=== PATIENT | female | born 1935 ===

== ENCOUNTER 2016-05-28 18:40 | Emergency (ER) | payer MEDICARE, MEDICAID ==
[2016-05-28 19:00] VITALS: TEMP 97.6; O2SAT 96
--- NOTE | 2016-05-28 19:59 | ED PDOC ---
HPI: CCC, URI, Sore Throat Chief Complaint (Provider): nose bleeding History Per: Patient History/Exam Limitations: no limitations Onset/Duration Of Symptoms: Hrs (6 hours ) Current Symptoms Are (Timing): Still Present Chief Complaint (Nursing): ENT Problem Additional Complaint(s): 80 yo , f, PMhx/o Hypertension, Hep C, recurrent epistaxis and multiples visit to ER for that reason, c/o left side nasal bleeding started today in the afternoon while she was sitting at home, not associated with trauma. She denies chest pain, SOB, dizziness, syncope, skin bruising or active bleeding from any other side of her body. Patient's daughter states that the last time she was seen by ENT was 7 months ago. Her ENT Dr Russell oswald [facility] Past Medical History - Medical History PMH: Hodgen's Disease, Anxiety, Cardia Arrhythmia, HTN Denies: HIV, Chronic Kidney Disease - Surgical History Surgical History: Appendectomy, Tonsillectomy - Family History Family History: States: Unknown Family Hx Vital Signs: Last Vital Signs Temp 97.6 F 05/28/16 18:56 Pulse 86 05/28/16 21:25 Resp 18 05/28/16 21:25 BP 130/90 05/28/16 21:25 Pulse Ox 96 05/28/16 21:33 - Home Medications Home Medications: Ambulatory Orders Medication Instructions Recorded Alprazolam [Xanax] 0.5 mg PO BID 12/01/14 Benazepril Hydrochloride [Lotensin] 1 tab PO DAILY 12/01/14 Gabapentin [Neurontin] 1 cap PO TID 12/01/14 Meclizine [Antivert] 12.5 mg PO TID 12/01/14 Omeprazole [Prilosec] 1 cap PO BID 12/01/14 Verapamil HCl [Verelan] 120 mg PO DAILY 12/01/14 Sodium Chloride [Nasal [place]] 88 ml NS Q4 #1 bottle 12/29/15 Amoxicillin/Clavulanate [Augmentin 1 tab PO BID #14 tab 05/28/16 875 MG-125 MG] Ferrous Sulfate [Feosol] 325 mg PO BID 05/28/16 - Allergies Allergies/Adverse Reactions: Allergies Allergy/AdvReac Type Severity Reaction Status Date / Time aspirin AdvReac VOMITING Verified 05/28/16 18:55 Review of Systems ENT: Positive for: Other (left side nasal bleeding ) Cardiovascular: Negative for: Chest Pain, Palpitations Respiratory: Negative for: Cough, Shortness of Breath Gastrointestinal: Negative for: Nausea, Abdominal Pain Neurological: Negative for: Weakness Psych: Negative for: Anxiety Physical Exam - Physical Exam Appears: Positive for: Well, No Acute Distress Head Exam: Positive for: ATRAUMATIC, NORMOCEPHALIC Skin: Positive for: Normal Color. Negative for: Diaphoresis, Pallor Eye Exam: Positive for: Normal appearance ENT: Positive for: Pharynx Is (posterior pharynx wall with blot clot, no active bleeding seen. left nostril with no active bleeding.dry guaze) Neck: Positive for: Normal Cardiovascular/Chest: Positive for: Regular Rate, Rhythm. Negative for: Chest Non Tender, Murmur Respiratory: Positive for: Normal Breath Sounds. Negative for: Crackles, Rales Gastrointestinal/Abdominal: Positive for: Normal Exam, Bowel Sounds, Soft. Negative for: Tenderness Neurologic/Psych: Positive for: Alert, Oriented - ECG O2 Sat by Pulse Oximetry: 96 Medical Decision Making Medical Decision Making: H&P as per resident, patient with left nare epistaxis with hx of recurrent epistaxis follows with Dr. Castellon of ENT. Left nare pack with 5.5 rhinorocket inserted with no complications. Pt to be discharged home with Augmentin. Pt will follow up with ENT within two days. Discussed plan with pt and daughter, who are agreeable. (Michaela Stafford) 19:40 80 yo , f, PMhx/o Hypertension, Hep C, recurrent epistaxis and multiples visit to ER for that reason Impression Epistaxis Cates Observation 20:40 Patient reports active bleeding by left nostril, gauze wet with blood Anterior nasal packing over Left nostril was placed. Patient tolerated procedure w/o complications. (Giuseppe De La Torre) Disposition - Disposition Disposition Time: 21:25 - Clinical Impression Clinical Impression: Nosebleed, symptom - Disposition Referrals: Jd Castellon MD [Staff Provider] - Condition: GOOD Additional Instructions: follow up with ENT in 2 days. return to the ED with any worsening or concerning symptoms Prescriptions: Amoxicillin/Clavulanate [Augmentin 875 MG-125 MG] 1 tab PO BID #14 tab Instructions: Nosebleed (ED) Print Language: MONGOLIAN
[2016-05-28 21:26] VITALS: BP 130/90; PULSE 86; RESP 18
--- NOTE | 2016-05-28 21:32 | ED PDOC ---
- ECG O2 Sat by Pulse Oximetry: 96 Medical Decision Making Medical Decision Making: H&P per resident, patient with left nare epistaxis with hx of recurrent epistaxis follows with Dr. Castellon of ENT. Left lorenz pact with 5.5 rhinorocket with no complications. Pt to be discharged home with Augmentin. Pt will follow up with ENT within two days. Discussed plan with pt and daughter, who are agreeable. Disposition Counseled Patient/Family Regarding: Studies Performed, Diagnosis, Need For Followup - Clinical Impression Clinical Impression: Nosebleed, symptom - POA Present On Arrival: None - Disposition Referrals: Jd Castellon MD [Staff Provider] - Disposition: Routine/Home Disposition Time: 22:00 Condition: GOOD Additional Instructions: follow up with ENT in 2 days. return to the ED with any worsening or concerning symptoms Prescriptions: Amoxicillin/Clavulanate [Augmentin 875 MG-125 MG] 1 tab PO BID #14 tab Instructions: Nosebleed (ED) Print Language: ROMANSH
== END 2016-05-28 21:25 | disposition home or self-care (01) ==
LOC: H.ER 18:40
DX: R04.0 Epistaxis (principal); I10 Essential (primary) hypertension; F41.9 Anxiety disorder, unspecified; B19.20 Unspecified viral hepatitis C without hepatic coma

== ENCOUNTER 2016-06-01 10:13 | Emergency (ER) | payer MEDICARE, MEDICAID ==
[2016-06-01 10:19] VITALS: TEMP 97
--- NOTE | 2016-06-01 10:33 | ED PDOC ---
HPI: General Adult Time Seen by Provider: 06/01/16 10:29 Chief Complaint (Nursing): ENT Problem History Per: Workers Compensation Specialist ([id number]) History/Exam Limitations: no limitations Additional Complaint(s): Patient is a 80yo female with hx of chronic nosebleeds and Hep C, comes to the ED for follow up after coming here for epistaxis on 05/28/16. She states that she was told by someone to return today. She reports compliance with antibiotics. She reports that she is feeling well. Past Medical History Reviewed: Historical Data, Nursing Documentation, Vital Signs Vital Signs: Last Vital Signs Temp 97 F L 06/01/16 10:18 Pulse 80 06/01/16 10:18 Resp BP 156/94 H 06/01/16 10:18 Pulse Ox 99 06/01/16 10:47 - Medical History PMH: Anxiety, Cardia Arrhythmia, HTN Denies: HIV, Chronic Kidney Disease - Surgical History Surgical History: Appendectomy, Tonsillectomy - Family History Family History: States: Unknown Family Hx - Home Medications Home Medications: Ambulatory Orders Medication Instructions Recorded Alprazolam [Xanax] 0.5 mg PO BID 12/01/14 Benazepril Hydrochloride [Lotensin] 1 tab PO DAILY 12/01/14 Gabapentin [Neurontin] 1 cap PO TID 12/01/14 Meclizine [Antivert] 12.5 mg PO TID 12/01/14 Omeprazole [Prilosec] 1 cap PO BID 12/01/14 Verapamil HCl [Verelan] 120 mg PO DAILY 12/01/14 Sodium Chloride [Nasal [place]] 88 ml NS Q4 #1 bottle 12/29/15 Amoxicillin/Clavulanate [Augmentin 1 tab PO BID #14 tab 05/28/16 875 MG-125 MG] Ferrous Sulfate [Feosol] 325 mg PO BID 05/28/16 - Allergies Allergies/Adverse Reactions: Allergies Allergy/AdvReac Type Severity Reaction Status Date / Time aspirin AdvReac VOMITING Verified 05/28/16 18:55 Review of Systems Constitutional: Negative for: Fever, Chills, Weakness, Malaise ENT: Negative for: Ear Pain, Nose Discharge, Mouth Pain, Mouth Swelling, Throat Pain, Throat Swelling Cardiovascular: Negative for: Chest Pain Respiratory: Negative for: Cough, Shortness of Breath, SOB with Exertion Gastrointestinal: Negative for: Nausea, Vomiting, Abdominal Pain, Diarrhea, Constipation Skin: Negative for: Rash Physical Exam - Physical Exam Appears: Positive for: Well, Non-toxic, No Acute Distress Head Exam: Positive for: ATRAUMATIC, NORMAL INSPECTION, NORMOCEPHALIC Eye Exam: Positive for: EOMI, PERRL, Scleral icterus ENT: Positive for: Other (rapid rhino to L nare) Neck: Positive for: Normal, Painless ROM Cardiovascular/Chest: Positive for: Regular Rate, Rhythm Respiratory: Positive for: Normal Breath Sounds - ECG O2 Sat by Pulse Oximetry: 99 Medical Decision Making Medical Decision Makin Old chart reviewed. [address] Castellon ENT who instructs removal of rapid-rhino in the ED. He requests continuation of medication and follow up in his office. 1046 Rapid rhino was removed by me. No epistaxis. Will monitor in the ED and discharge if stable. 1102 No recurrent epistaxis Disposition - Clinical Impression Clinical Impression: Epistaxis - Disposition Disposition: Routine/Home Disposition Time: 11:02 Condition: GOOD Additional Instructions: Follow up with Dr. Castellon within 2 days. Return to ED if condition worsens. Continue antibiotics. Additional Comments - Additional Comments Additional Comments: Scribe Attestation: Documented by Nader Ann acting as a scribe for Kimberly Pelaez MD. Scribe Attestation: All medical record entries made by the Scribe were at my direction and personally dictated by me. I have reviewed the chart and agree that the record accurately reflects my personal performance of the history, physical exam, medical decision making, and the department course for this patient. I have also personally directed, reviewed, and agree with the discharge instructions and disposition.
[2016-06-01 11:17] VITALS: BP 149/88; PULSE 84; RESP 18; O2SAT 98
== END 2016-06-01 11:17 | disposition home or self-care (01) ==
LOC: H.ER 10:13
DX: R04.0 Epistaxis (principal); I10 Essential (primary) hypertension; B19.20 Unspecified viral hepatitis C without hepatic coma; F41.9 Anxiety disorder, unspecified

== ENCOUNTER 2016-07-23 11:23 | Emergency (ER) | payer MEDICARE, MEDICAID ==
[2016-07-23 11:43] VITALS: BP 150/89; PULSE 88; RESP 20; TEMP 98.2
[2016-07-23 11:47] VITALS: O2SAT 98
[2016-07-23] MEDS ORDERED: Silver Nitrate Topical - Stick ONE (12:53)
--- NOTE | 2016-07-23 12:54 | ED PDOC ---
HPI: Nose Bleed Time Seen by Provider: 07/23/16 11:45 Chief Complaint (Nursing): ENT Problem History Per: Patient History/Exam Limitations: no limitations Onset/Duration Of Symptoms: Sudden Onset (today) Current Symptoms Are (Timing): Still Present Location Of Bleeding: Both Nares Symptoms Have Been: Episodic Severity: Mild Associated Symptoms: denies: Syncope, Lightheadedness, Bleeding From Gums, Nasal Congestion, Nasal Drainage Anticoagulant/Antiplatlet Use?: No Additional Complaint(s): mild nose bleed similar sx in the past. Past Medical History Reviewed: Historical Data, Nursing Documentation, Vital Signs Vital Signs: Last Vital Signs Temp 98.2 F 07/23/16 11:45 Pulse 88 07/23/16 11:45 Resp 20 07/23/16 11:45 BP 150/89 07/23/16 11:45 Pulse Ox 98 07/23/16 11:45 - Medical History PMH: Albin's Disease, Anxiety, Cardia Arrhythmia, HTN Denies: HIV, Chronic Kidney Disease - Surgical History Surgical History: Appendectomy, Tonsillectomy - Family History Family History: States: Unknown Family Hx - Living Arrangements Living Arrangements: With Family - Home Medications Home Medications: Ambulatory Orders Medication Instructions Recorded Alprazolam [Xanax] 0.5 mg PO BID 12/01/14 Benazepril Hydrochloride [Lotensin] 1 tab PO DAILY 12/01/14 Gabapentin [Neurontin] 1 cap PO TID 12/01/14 Meclizine [Antivert] 12.5 mg PO TID 12/01/14 Omeprazole [Prilosec] 1 cap PO BID 12/01/14 Verapamil HCl [Verelan] 120 mg PO DAILY 12/01/14 Sodium Chloride [Nasal [place]] 88 ml NS Q4 #1 bottle 12/29/15 Amoxicillin/Clavulanate [Augmentin 1 tab PO BID #14 tab 05/28/16 875 MG-125 MG] Ferrous Sulfate [Feosol] 325 mg PO BID 05/28/16 - Allergies Allergies/Adverse Reactions: Allergies Allergy/AdvReac Type Severity Reaction Status Date / Time aspirin AdvReac VOMITING Verified 07/23/16 11:43 Review of Systems ROS Statement: Except As Marked, All Systems Reviewed And Found Negative Constitutional: Negative for: Fever, Chills ENT: Negative for: Throat Pain, Throat Swelling Cardiovascular: Negative for: Chest Pain Respiratory: Negative for: Cough, Shortness of Breath Gastrointestinal: Negative for: Nausea, Vomiting, Abdominal Pain Neurological: Negative for: Weakness, Numbness Physical Exam - Reviewed Nursing Documentation Reviewed: Yes Vital Signs Reviewed: Yes - Physical Exam Appears: Positive for: Well, No Acute Distress Head Exam: Positive for: ATRAUMATIC, NORMAL INSPECTION, NORMOCEPHALIC Eye Exam: Positive for: Normal appearance, EOMI, PERRL ENT: Positive for: Other (mild epistaxsis from left nare) Neck: Positive for: Normal, Painless ROM, Supple Cardiovascular/Chest: Positive for: Regular Rate, Rhythm Respiratory: Positive for: Normal Breath Sounds Neurologic/Psych: Positive for: Alert, linen worker II-XII, Oriented, Gait (steady). Negative for: Motor/Sensory Deficits - ECG O2 Sat by Pulse Oximetry: 98 Pulse Ox Interpretation: Normal - Progress ED Course And Treament: sx improved after cauterization with silver nitrate. bleeding stopped pt tolerate procedure well and leaves in good spirits with family. Re-evaluation Time: 13:35 Condition: Improved Disposition - Clinical Impression Clinical Impression: Epistaxis - Patient ED Disposition Is Patient to be Admitted: No Counseled Patient/Family Regarding: Studies Performed, Diagnosis, Need For Followup - Disposition Referrals: Jd Castellon MD [Staff Provider] - (2 to 3 days) Disposition: Routine/Home Disposition Time: 13:36 Condition: GOOD Instructions: Nosebleed (ED) Print Language: SYRIAC
== END 2016-07-23 13:51 | disposition home or self-care (01) ==
LOC: H.ER 11:23
DX: R04.0 Epistaxis (principal); I10 Essential (primary) hypertension; F41.9 Anxiety disorder, unspecified

== ENCOUNTER 2017-06-08 18:34 | Emergency (ER) | payer MEDICARE, MEDICAID ==
[2017-06-08 18:43] VITALS: BP 150/83; PULSE 79; RESP 18; TEMP 97.9; O2SAT 97
--- NOTE | 2017-06-08 19:58 | ED PDOC ---
HPI: General Adult Time Seen by Provider: 06/08/17 19:12 Chief Complaint (Nursing): Dizziness/Lightheaded Chief Complaint (Provider): Dizziness History Per: Patient, Family History/Exam Limitations: no limitations Onset/Duration Of Symptoms: Hrs (12) Current Symptoms Are (Timing): Gone Now Severity: Moderate Additional History Per: Patient, Family Additional Complaint(s): 82 y/o female accompanied by her daughter. Patient describes an episode of dizziness this morning when she first awoke and worsened when she starting walking around her house. This lasted for approximately 1 hour and then resolved. However, since then, she has had a "queasy" feeling from her nose to her forehead, for which she taped a coin to her forehead as a home remedy. She has also been feeling anxious. Denies chest pain, syncope, numbness, weakness, or nausea. She reports isolated left arm pain last week that did not involve the chest, or shoulder. Patient's daughter reports that the patient has a history of chronic vertigo for which she takes meclizine. They came to the ED tonight for the "queasy" feeling, after calling the patient's PMD Dr. Leahy Past Medical History Vital Signs: Last Vital Signs Temp 97.9 F 06/08/17 18:41 Pulse 79 06/08/17 18:41 Resp 18 06/08/17 18:41 BP 150/83 06/08/17 18:41 Pulse Ox 97 06/08/17 22:42 - Medical History PMH: Dickson's Disease, Anxiety, Cardia Arrhythmia, HTN Denies: HIV, Chronic Kidney Disease Other PMH: vertigo - Surgical History Surgical History: Appendectomy, Tonsillectomy - Family History Family History: States: Unknown Family Hx - Social History Current smoker - smoking cessation education provided: No Alcohol: None Drugs: Denies - Home Medications Home Medications: Ambulatory Orders Medication Instructions Recorded Alprazolam [Xanax] 0.5 mg PO BID 12/01/14 Benazepril Hydrochloride [Lotensin] 1 tab PO DAILY 12/01/14 Gabapentin [Neurontin] 1 cap PO TID 12/01/14 Meclizine [Antivert] 12.5 mg PO TID 12/01/14 Omeprazole [Prilosec] 1 cap PO BID 10/13/15 Verapamil HCl [Verelan] 120 mg PO DAILY 12/01/14 Sodium Chloride [Nasal [place]] 88 ml NS Q4 #1 bottle 12/29/15 Amoxicillin/Clavulanate [Augmentin 1 tab PO BID #14 tab 05/28/16 875 MG-125 MG] Ferrous Sulfate [Feosol] 325 mg PO BID 05/28/16 - Allergies Allergies/Adverse Reactions: Allergies Allergy/AdvReac Type Severity Reaction Status Date / Time aspirin AdvReac VOMITING Verified 06/08/17 18:40 Review of Systems ROS Statement: Except As Marked, All Systems Reviewed And Found Negative Neurological: Positive for: Dizziness Physical Exam - Reviewed Nursing Documentation Reviewed: Yes Vital Signs Reviewed: Yes - Physical Exam Appears: Positive for: Well, Non-toxic, No Acute Distress Head Exam: Positive for: ATRAUMATIC, NORMAL INSPECTION, NORMOCEPHALIC Skin: Positive for: Normal Color, Warm, DRY Eye Exam: Positive for: EOMI, Normal appearance, PERRL ENT: Positive for: Normal ENT Inspection Neck: Positive for: Normal, Painless ROM Cardiovascular/Chest: Positive for: Regular Rate, Rhythm Respiratory: Positive for: CNT, Normal Breath Sounds Gastrointestinal/Abdominal: Positive for: Normal Exam, Soft Back: Positive for: Normal Inspection Extremity: Positive for: Normal ROM Neurologic/Psych: Positive for: Alert, story writer II-XII, Oriented, Mood/Affect (normal ), Cerebellar Tests (unremarkable finger to nose, Romberg, and heel to farias), Gait (stable). Negative for: Motor/Sensory Deficits, Facial Droop - Laboratory Results Result Diagrams: 06/08/17 20:00 06/08/17 20:00 - ECG ECG: Positive for: Interpreted By Me, Viewed By Me ECG Rhythm: Positive for: Normal ST Segment, Sinus Rhythm (82, PACs), Right Bundle Branch Block (same as previous) O2 Sat by Pulse Oximetry: 97 (RA) Pulse Ox Interpretation: Normal - Progress Re-evaluation Time: 22:40 Condition: Re-examined, Improved Medical Decision Making Medical Decision Making: Impression: Dizziness Differential: peripheral vertigo, central vertigo Plan: - Labs - EKG - CT Head - Antivert [facility] Final Radiology Report Call: [phone] assistance Online chat: [email or web address] Patient Name: TYRONE WANG (Age): 1935 82 Gender: F Date of Exam: 06/08/2017 Referring Physician: Juany Linder # of Images: [id number] Ordered As: CT HEAD W O CONTRAST Page 1 of 2 EXAM: CT Head Without Intravenous Contrast EXAM DATE/TIME: 06/08/2017 7:28 PM CLINICAL HISTORY: 82 years old, female; Signs and symptoms; Dizziness TECHNIQUE: Axial computed tomography images of the head/brain without intravenous contrast. All CT scans at this facility use one or more dose reduction techniques, viz.: automated exposure control; ma/kV adjustment per patient size (including targeted exams where dose is matched to indication; i.e. head); or iterative reconstruction technique. Coronal and sagittal reformatted images were created and reviewed. COMPARISON: Prior head CT of 2014-12-01 FINDINGS: LIMITATIONS: Moderate streak/motion artifact. BRAIN: Extensive areas of low density in the white matter bilaterally. This is a nonspecific finding, however, is most likely secondary to marked chronic small vessel ischemic changes, in a patient of this age. No significant acute abnormality identified. No acute hemorrhage seen within the brain. No acute extra-axial fluid collections visualized. No evidence of significant mass effect within the brain. No CT findings to suggest an acute, large territorial infarct, however, small or early acute infarcts may not be visible on CT. VENTRICLES: No evidence of significant hydrocephalus. BONES/JOINTS: No acute fractures or other acute bony abnormality noted. SOFT TISSUES: No acute abnormality of the visualized soft tissues is seen. VASCULATURE: Grossly stable appearance of aneurysmal dilatation of the cavernous segments of the internal carotid arteries bilaterally, measuring up to 1.3 cm on the right and 8 mm on the left, associated with atherosclerotic calcification. No evidence of aneurysm rupture. SINUSES: Visualized paranasal sinuses appear clear. MASTOID AIR CELLS: Mastoid air cells appear clear. IMPRESSION: - No acute findings seen within the brain, allowing for motion artifact. TYRONE WANG | Final Radiology Report CONFIDENTIALITY STATEMENT This report is intended only for use by the referring physician, and only in accordance with law. If you received this in error, call [phone]. 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 - See above for remaining findings. Thank you for allowing us to participate in the care of your patient. Dictated and Authenticated by: Amara Resendez MD 06/08/2017 9:47 PM Eastern Time ([place] & [place]) 22:45: Spoke with patient's PMD who is comfortable with the patient being discharged home and following up in the office. She is stable for discharge home and reports that her complains are significantly improved at this time. furthermore, she was able to ambulate to the restroom without difficulty and has a steady gait. There is no indication for further treatment or testing at this time in the ED, nor indication for admission. Scribe Attestation: Documented by Cathy Pabon, acting as a scribe for Juany Lnider MD. Provider Scribe Attestation: All medical record entries made by the Scribe were at my direction and personally dictated by me. I have reviewed the chart and agree that the record accurately reflects my personal performance of the history, physical exam, medical decision making, and the department course for this patient. I have also personally directed, reviewed, and agree with the discharge instructions and disposition. Disposition - Clinical Impression Clinical Impression: Dizzy spells, Recurrent vertigo - Patient ED Disposition Is Patient to be Admitted: No Discussed With : Peter Rojas Doctor Will See Patient In The: Office Counseled Patient/Family Regarding: Studies Performed, Diagnosis, Need For Followup - Disposition Referrals: Peter Rojas MD [Family Provider] - Disposition: Routine/Home Disposition Time: 22:40 Condition: GOOD Additional Instructions: Take your medications as instructed. Follow up with your PCP on Sunday. [place] [facility] segn las instrucciones. Doc un seguimiento con madera PCP el . Instructions: Vertigo (a Type of Dizziness) Print Language: TURKMEN
[2017-06-08 20:06] LABS: BASO % 0.8 % (0.0-2.0); EOS # 0.1 K/uL (0.0-0.7); EOS % 2.8 % (0.0-4.0); LYMPH # 1.8 K/uL (1.0-4.3); LYMPH % 46.8 % (20.0-40.0); MEAN CELL VOLUME 93.5 fl (81.0-99.0); MEAN CORPUSCULAR HEMOGLOBIN 30.7 pg (27.0-31.0); MEAN CORPUSCULAR HGB CONC 32.8 g/dL (33.0-37.0); MEAN PLATELET VOLUME 9.7 fl (7.2-11.7); MONO # 0.5 K/uL (0.0-0.8); MONO % 13.3 % (0.0-10.0); NEUT # 1.4 K/uL (1.8-7.0); NEUT % 36.3 % (50.0-75.0); NRBC % 0.1 % (0.0-0.0); RBC 3.9 Mil/uL (3.80-5.20); RED CELL DISTRIBUTION WIDTH 15.4 % (11.5-14.5); WHITE BLOOD COUNT 3.9 K/uL (4.8-10.8)
[2017-06-08 20:17] LABS: BLOOD UREA NITROGEN 23 mg/dl (7-17); CALCIUM 9.3 mg/dL (8.4-10.2); GFR AFRICAN-AMERICAN > 60; GFR NON-AFRICAN AMERICAN > 60
[2017-06-08 20:49] LABS: SQUAMOUS EPITHIAL 2 /hpf (0-5); URINE BACTERIA RARE (<OCC); URINE BILIRUBIN NEGATIVE (NEGATIVE); URINE BLOOD NEGATIVE (NEGATIVE); URINE CLARITY CLOUDY (Clear); URINE COLOR YELLOW (YELLOW); URINE GLUCOSE (UA) NEG (Normal); URINE LEUKOCYTE ESTERASE TRACE Leu/uL (Negative); URINE PROTEIN NEGATIVE (NEGATIVE); URINE UROBILINOGEN 0.2-1.0 mg/dL (0.2-1.0)
--- NOTE | 2017-06-08 21:48 | CT ---
EXAM: CT Head Without Intravenous Contrast EXAM DATE/TIME: 06/08/2017 7:28 PM CLINICAL HISTORY: 82 years old, female; Signs and symptoms; Dizziness TECHNIQUE: Axial computed tomography images of the head/brain without intravenous contrast. All CT scans at this facility use one or more dose reduction techniques, viz.: automated exposure control; ma/kV adjustment per patient size (including targeted exams where dose is matched to indication; i.e. head); or iterative reconstruction technique. Coronal and sagittal reformatted images were created and reviewed. COMPARISON: Prior head CT of 2014-12-01 FINDINGS: LIMITATIONS: Moderate streak/motion artifact. BRAIN: Extensive areas of low density in the white matter bilaterally. This is a nonspecific finding, however, is most likely secondary to marked chronic small vessel ischemic changes, in a patient of this age. No significant acute abnormality identified. No acute hemorrhage seen within the brain. No acute extra-axial fluid collections visualized. No evidence of significant mass effect within the brain. No CT findings to suggest an acute, large territorial infarct, however, small or early acute infarcts may not be visible on CT. VENTRICLES: No evidence of significant hydrocephalus. BONES/JOINTS: No acute fractures or other acute bony abnormality noted. SOFT TISSUES: No acute abnormality of the visualized soft tissues is seen. VASCULATURE: Grossly stable appearance of aneurysmal dilatation of the cavernous segments of the internal carotid arteries bilaterally, measuring up to 1.3 cm on the right and 8 mm on the left, associated with atherosclerotic calcification. No evidence of aneurysm rupture. SINUSES: Visualized paranasal sinuses appear clear. MASTOID AIR CELLS: Mastoid air cells appear clear. IMPRESSION: - No acute findings seen within the brain, allowing for motion artifact. 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 - See above for remaining findings.
--- NOTE | 2017-06-09 11:46 | CARD ---
APPROVED REPORT EKG Measurement Heart [id number] <Conclusion> Sinus rhythm with premature atrial complexes Right bundle branch block Abnormal ECG
== END 2017-06-08 22:49 | disposition home or self-care (01) ==
LOC: H.ER 18:34
DX: R42 Dizziness and giddiness (principal); I10 Essential (primary) hypertension; E27.1 Primary adrenocortical insufficiency; F41.9 Anxiety disorder, unspecified

== ENCOUNTER 2017-07-20 11:08 | Observation (INO) | payer MEDICARE, MEDICAID ==
[2017-07-20 11:41] VITALS: BMI 27.4
--- NOTE | 2017-07-20 12:29 | ED PDOC ---
HPI: General Adult Time Seen by Provider: 07/20/17 11:57 Chief Complaint (Nursing): Lower Extremity Problem/Injury History Per: Patient (this is an 82 year lady who is sent to the ER by Dr. Rojas because she presented with dizziness yesterday along with left arm pain and bilateral knee pain. Dr. Rojas is very concerned about her knee pain and asked for MRI's to be done instead of x-rays or CT-scan. Patient denies CROOK, nausea,vomiting, chest pain or shortness of breath.) Past Medical History Reviewed: Historical Data, Nursing Documentation, Vital Signs Vital Signs: Last Vital Signs Temp 98.1 F 07/20/17 11:41 Pulse 66 07/20/17 16:05 Resp 18 07/20/17 16:05 BP 150/85 07/20/17 16:05 Pulse Ox 99 07/20/17 16:05 - Medical History PMH: [place]'s Disease, Anxiety, Cardia Arrhythmia, HTN, Hyperthyroidism Denies: HIV, Chronic Kidney Disease - Surgical History Surgical History: Appendectomy, Tonsillectomy - Family History Family History: States: Unknown Family Hx - Living Arrangements Living Arrangements: With Family - Social History Current smoker - smoking cessation education provided: No - Home Medications Home Medications: Ambulatory Orders Medication Instructions Recorded Alprazolam [Xanax] 0.5 mg PO BID 12/01/14 Benazepril Hydrochloride [Lotensin] 1 tab PO DAILY 12/01/14 Gabapentin [Neurontin] 1 cap PO TID 12/01/14 Meclizine [Antivert] 12.5 mg PO TID 12/01/14 Omeprazole [Prilosec] 1 cap PO BID 12/01/14 Verapamil HCl [Verelan] 120 mg PO DAILY 12/01/14 Sodium Chloride [Nasal [place]] 88 ml NS Q4 #1 bottle 12/29/15 Amoxicillin/Clavulanate [Augmentin 1 tab PO BID #14 tab 05/28/16 875 MG-125 MG] Ferrous Sulfate [Feosol] 325 mg PO BID 05/28/16 - Allergies Allergies/Adverse Reactions: Allergies Allergy/AdvReac Type Severity Reaction Status Date / Time aspirin AdvReac VOMITING Verified 07/20/17 12:02 Review of Systems ROS Statement: Except As Marked, All Systems Reviewed And Found Negative Constitutional: Negative for: Fever Cardiovascular: Negative for: Chest Pain Gastrointestinal: Negative for: Nausea, Vomiting Genitourinary Female: Negative for: Dysuria Musculoskeletal: Positive for: Other (bilateral knee pain) Neurological: Positive for: Dizziness - Laboratory Results Result Diagrams: 07/20/17 12:30 07/20/17 12:30 - ECG O2 Sat by Pulse Oximetry: 98 Medical Decision Making Medical Decision Making: case d/w Dr. Rojas @12:15pm case d/w Dr. Rojas 4:30pm- patient to be admitted for intractable knee pain with bilateral knee joint instability. Disposition - Clinical Impression Clinical Impression: Knee pain, acute, Knee instability - Patient ED Disposition Is Patient to be Admitted: Yes Doctor Will See Patient In The: Hospital - Disposition Disposition: Transfer of Care Disposition Time: 16:30 Condition: FAIR Forms: [employer] (Finnish) - Pt Status Changed To: Hospital Disposition Of: Observation - POA Present On Arrival: Falls Or Trauma
[2017-07-20 12:45] LABS: BASO # 0.1 K/uL (0.0-0.2); BASO % 1.2 % (0.0-2.0); EOS # 0.2 K/uL (0.0-0.7); EOS % 3.8 % (0.0-4.0); HEMOGLOBIN 12.2 g/dL (12.0-16.0); LYMPH % 45.7 % (20.0-40.0); MEAN CELL VOLUME 92.4 fl (81.0-99.0); MEAN CORPUSCULAR HEMOGLOBIN 30.6 pg (27.0-31.0); MEAN CORPUSCULAR HGB CONC 33.1 g/dL (33.0-37.0); MEAN PLATELET VOLUME 9.5 fl (7.2-11.7); MONO # 0.8 K/uL (0.0-0.8); NEUT # 1.3 K/uL (1.8-7.0); NEUT % 31.3 % (50.0-75.0); NRBC % 0.1 % (0.0-0.0); RED CELL DISTRIBUTION WIDTH 14.9 % (11.5-14.5); WHITE BLOOD COUNT 4.3 K/uL (4.8-10.8)
[2017-07-20 13:15] LABS: ALB/GLOB RATIO 0.9 (1.0-2.1); ALBUMIN 4.1 g/dL (3.5-5.0); ALT/SGPT 27 U/L (9-52); AST/SGOT 32 U/L (14-36); BLOOD UREA NITROGEN 20 mg/dl (7-17); CALCIUM 9.3 mg/dL (8.4-10.2); GFR AFRICAN-AMERICAN > 60; GFR NON-AFRICAN AMERICAN > 60
--- NOTE | 2017-07-20 15:02 | MRI ---
PROCEDURE: MRI Left Knee HISTORY: Pain. COMPARISON: None available. TECHNIQUE: Multiecho multiplanar sequences were performed through the left knee. FINDINGS: ANTERIOR CRUCIATE LIGAMENT:: IntactA complete tear of the distal ACL is suggested though this is not definite. POSTERIOR CRUCIATE LIGAMENT:: Intact. MEDIAL MENISCUS:: There is limited residual medial meniscus remaining at the body with a small fragment the posterior horn remaining secondary to complex degenerative changes, postoperative change and/or multiple full-thickness tear is. The anterior horn is displaced anteriorly migrating with large osteophytes. LATERAL MENISCUS:: Gross degenerative intrameniscal signal changes seen related to the lateral meniscus without definitive articular tear. MEDIAL COLLATERAL LIGAMENT:: Sprain or partial tear is of the anterior fibers of the medial collateral ligament complex is appreciated as well as lateral fibers diffusely. LATERAL COLLATERAL LIGAMENT COMPLEX:: No definite acute tear. QUADRICEPS TENDON:: Intact. PATELLAR TENDON:: Intact. CARTILAGE:: Gross chondromalacia is appreciate all 3 joint compartments. JOINT FLUID:: [id number] medial femorotibial joint effusions with a large suprapatellar bursa effusion present. OSSEOUS STRUCTURES:: Gross joint space narrowing and osteophyte development are identified at the medial femorotibial compartment with similar advanced changes are present at the patellofemoral and lateral femoral compartment but in decreasing severity. No fracture or bone contusion although gross eburnation and subchondral edema is seen at the weight-bearing portion of the medial femorotibial compartment further in the representing advanced degenerative joint disease. Lesser similar change appears at the patellofemoral articulation with none at the lateral femorotibial compartment. OTHER FINDINGS: Mildly large medial popliteal cyst 3.8 x 1.9 x 5.5 cm. IMPRESSION: Primary feature is grossly advanced osteoarthritis though ACL tear versus gross distal ACL mucoid degeneration is identified. Partial tear or sprain MCL fibers as described above. Complex tear is an pathology at medial meniscus identified. Mildly large medial popliteal cyst noted.
--- NOTE | 2017-07-20 15:12 | MRI ---
PROCEDURE: MRI Right Knee HISTORY: Pain. COMPARISON: None available. TECHNIQUE: Multiecho multiplanar sequences were performed through the right knee. FINDINGS: Examination is compromised by motion artifact ANTERIOR CRUCIATE LIGAMENT:: Will AC left not identified indicative of complete tear. POSTERIOR CRUCIATE LIGAMENT:: Intact. MEDIAL MENISCUS:: Minimus is grossly deep disease with anterior and posterior horns migrating with large osteophytes peripherally. The body is bright in signal throughout suggesting gross inferior articular tear or marked mucoid degeneration. LATERAL MENISCUS:: No definite articular tear identified. Degenerative intrameniscal signal changes are identified relatively diffusely. MEDIAL COLLATERAL LIGAMENT:: Intact. LATERAL COLLATERAL LIGAMENT COMPLEX:: Intact. QUADRICEPS TENDON:: Intact. PATELLAR TENDON:: Intact. CARTILAGE:: There is gross chondromalacia involving all 3 compartments with medial femorotibial compartment the worst affected were there is minimal residual appreciated. JOINT FLUID:: [id number] medial and lateral femorotibial joint effusions are identified with a large suprapatellar bursa effusion. OSSEOUS STRUCTURES:: No fracture or subluxation. Gross subchondral edema is appreciated deep to the articular surfaces of the medial tibial plateau and medial femoral condyle compatible with advanced degenerative joint disease. No definite subchondral cyst formation grossly evident. OTHER FINDINGS: None. IMPRESSION: Advanced osteoarthritis is the primary feature although nonvisualization of the ACL indicates complete tear. No additional ligament or tendon tear identified. Gross myxoid degeneration or inferior articular tear seen related to the body of the medial meniscus.
--- NOTE | 2017-07-20 16:20 | CT ---
PROCEDURE: CT HEAD WITHOUT CONTRAST. HISTORY: dizziness COMPARISON: 06/08/2017 TECHNIQUE: Axial computed tomography images were obtained through the head/brain without intravenous contrast. Radiation dose: Total exam DLP = 796.15 mGy-cm. This CT exam was performed using one or more of the following dose reduction techniques: Automated exposure control, adjustment of the mA and/or kV according to patient size, and/or use of iterative reconstruction technique. FINDINGS: HEMORRHAGE: No intracranial hemorrhage. BRAIN: No intracranial mass. Moderate to severe patchy and confluent white matter lucency in the periventricular and deep/subcortical white matter, consistent with microvascular ischemic change. No evidence of acute infarct. 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 No appreciable interval change. VENTRICLES: Unremarkable. No hydrocephalus. CALVARIUM: Unremarkable. PARANASAL SINUSES: Unremarkable as visualized. No significant inflammatory changes. MASTOID AIR CELLS: Unremarkable as visualized. No inflammatory changes. OTHER FINDINGS: None. IMPRESSION: No intracranial hemorrhage. Moderate to severe microvascular white matter ischemic change. No evidence of acute infarct. 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
[2017-07-20] MEDS ORDERED: Oxycodone/Acetaminophen 5/325 mg Tab PO PRN (22:20)
[2017-07-20] MEDS ORDERED: Verapamil SR 120 MG CApsule PO SCH (22:30)
[2017-07-21 08:16] VITALS: RESP 20
[2017-07-21 08:17] VITALS: TEMP 98; O2SAT 95
[2017-07-21 08:40] LABS: ALB/GLOB RATIO 0.9 (1.0-2.1); ALBUMIN 4.1 g/dL (3.5-5.0); ALT/SGPT 19 U/L (9-52); AST/SGOT 29 U/L (14-36); BLOOD UREA NITROGEN 19 mg/dl (7-17); GFR AFRICAN-AMERICAN > 60; GFR NON-AFRICAN AMERICAN > 60; HDL CHOLESTEROL 48 MG/DL (30-70)
[2017-07-21 08:48] LABS: HEMOGLOBIN 12.3 g/dL (12.0-16.0); MEAN CELL VOLUME 92.6 fl (81.0-99.0); MEAN CORPUSCULAR HEMOGLOBIN 30.6 pg (27.0-31.0); RBC 4.02 Mil/uL (3.80-5.20); RED CELL DISTRIBUTION WIDTH 15.3 % (11.5-14.5); WHITE BLOOD COUNT 4.9 K/uL (4.8-10.8)
[2017-07-21 08:50] LABS: LDL CHOLESTEROL 69 mg/dL (0-129)
[2017-07-21 08:54] LABS: T4 11.9 ug/dl (5.5-11.0)
[2017-07-21] MEDS ORDERED: Pantoprazole 20 mg EC Tab PO SCH (09:00)
[2017-07-21] MEDS ORDERED: Multivitamin With Minerals Tab PO SCH (09:00)
[2017-07-21 09:35] VITALS: BP 122/70; PULSE 84
--- NOTE | 2017-07-21 10:40 | CP.PCM.CON ---
History of Present Illness - History of Present Illness History of Present Illness: This is a 82 yr old female with h/o anxiety and medical h/o knee pain,walt disease ,cardiac arrythmias and admitted for intractable knee pain and psych consult called for intractable knee pain and psych consult called for severe anxiety.pt was prescribed xanax 0.5 mg bid and neurontin 100 mg tid Past Patient History - Infectious Disease Hx of Infectious Diseases: None - Past Medical History & Family History Past Medical History?: Yes - Past Social History Smoking Status: Never Smoked - CARDIAC Hx Cardiac Disorders: Yes - PULMONARY Hx Respiratory Disorders: No - NEUROLOGICAL Hx Neurological Disorder: No - HEENT Hx HEENT Problems: Yes Hx Epistaxis: Yes - RENAL Hx Chronic Kidney Disease: No - ENDOCRINE/METABOLIC Hx Endocrine Disorders: Yes - HEMATOLOGICAL/ONCOLOGICAL Hx Human Immunodeficiency Virus (HIV): No - INTEGUMENTARY Hx Dermatological Problems: No - MUSCULOSKELETAL/RHEUMATOLOGICAL Hx Degenerative Joint Disease: Yes Hx Falls: Yes Hx Osteoarthritis: Yes - GASTROINTESTINAL Hx Gastroesophageal Reflux: Yes Other/Comment: Hepatitis C - GENITOURINARY/GYNECOLOGICAL Hx Genitourinary Disorders: No - PSYCHIATRIC Hx Anxiety: Yes Hx Substance Use: No - SURGICAL HISTORY Hx Appendectomy: Yes Hx Tonsillectomy: Yes - ANESTHESIA Hx Anesthesia: Yes Hx Anesthesia Reactions: No Hx Malignant Hyperthermia: No Meds Allergies/Adverse Reactions: Allergies Allergy/AdvReac Type Severity Reaction Status Date / Time aspirin AdvReac VOMITING Verified 07/20/17 12:02 - Medications Medications: Current Medications Alprazolam (Xanax) 0.25 mg PO Q12 PRN PRN Reason: Anxiety Stop: 07/27/17 22:21 Gabapentin (Neurontin) 100 mg PO Q12 [facility] Last Admin: 07/21/17 09:32 Dose: 100 mg Home Med (Ropinirole Hcl [Requip]) 0.5 mg PO HS [facility] Last Admin: 07/20/17 23:45 Dose: 0.5 mg Lisinopril (Zestril) 10 mg PO DAILY [facility] Last Admin: 07/21/17 09:34 Dose: 10 mg Meclizine HCl (Antivert) 25 mg PO Q8 PRN PRN Reason: Dizziness Methimazole (Tapazole) 10 mg PO Q8 [facility] Last Admin: 07/21/17 09:32 Dose: 10 mg Montelukast Sodium (Singulair) 10 mg PO HS [facility] Last Admin: 07/20/17 23:32 Dose: 10 mg Multivitamins/Minerals (Therapeutic-M Tab) 1 tab PO DAILY [facility] Last Admin: 07/21/17 09:31 Dose: 1 tab Oxycodone/Acetaminophen (Percocet 5/325 Mg Tab) 1 tab PO Q4 PRN PRN Reason: Pain, severe (8-10) Stop: 07/23/17 22:21 Pantoprazole Sodium (Protonix Ec Tab) 20 mg PO DAILY [facility] Last Admin: 07/21/17 09:45 Dose: 20 mg Verapamil HCl (Calan Sr Capsule) 120 mg PO [facility] Last Admin: 07/20/17 23:33 Dose: 120 mg Physical Exam - Psychiatric Exam Psychiatric exam: Anxious Additional comments: pt is alert with intact cognition.pt is very nervous about the surgery and also her meds were decreased as well.pt denies suicidal ideation.no hallucinations.pt has fair insight and judgement Results - Vital Signs Recent Vital Signs: Last Vital Signs Temp 98 F 07/21/17 08:16 Pulse 84 07/21/17 09:34 Resp 20 07/21/17 08:16 BP 122/70 07/21/17 09:34 Pulse Ox 95 07/21/17 08:16 - Labs Result Diagrams: 07/21/17 06:00 07/21/17 06:00 Labs: Laboratory Results - last 24 hr 07/20/17 07/20/17 07/20/17 12:30 12:30 13:02 WBC 4.3 L RBC 4.00 Hgb 12.2 Hct 36.9 MCV 92.4 MCH 30.6 MCHC 33.1 RDW 14.9 H Plt Count 135 MPV 9.5 Neut % (Auto) 31.3 L Lymph % (Auto) 45.7 H [place] % (Auto) 18.0 H Eos % (Auto) 3.8 Baso % (Auto) 1.2 Neut # (Auto) 1.3 L Lymph # (Auto) 2.0 [place] # (Auto) 0.8 Eos # (Auto) 0.2 Baso # (Auto) 0.1 ESR Sodium 143 Potassium 3.9 Chloride 104 Carbon Dioxide 30 Anion Gap 13 BUN 20 H Creatinine 0.9 Est GFR ( Amer) > 60 Est GFR (Non-Af Amer) > 60 POC Glucose (mg/dL) 97 Random Glucose 100 Calcium 9.3 Total Bilirubin 0.9 AST 32 ALT 27 Alkaline Phosphatase 69 Troponin I 0.0190 Total Protein 8.5 H Albumin 4.1 Globulin 4.4 H Albumin/Globulin Ratio 0.9 L Triglycerides Cholesterol LDL Cholesterol Direct HDL Cholesterol Vitamin B12 Thyroxine (T4) TSH 3rd Generation 1.48 07/21/17 07/21/17 06:00 06:00 WBC 4.9 RBC 4.02 Hgb 12.3 Hct 37.2 MCV 92.6 MCH 30.6 MCHC 33.0 RDW 15.3 H Plt Count 140 MPV Neut % (Auto) Lymph % (Auto) [place] % (Auto) Eos % (Auto) Baso % (Auto) Neut # (Auto) Lymph # (Auto) [place] # (Auto) Eos # (Auto) Baso # (Auto) ESR 41 H Sodium 141 Potassium 3.7 Chloride 102 Carbon Dioxide 24 Anion Gap 19 BUN 19 H Creatinine 0.8 Est GFR ( Amer) > 60 Est GFR (Non-Af Amer) > 60 POC Glucose (mg/dL) Random Glucose 139 H Calcium 9.0 Total Bilirubin 0.9 AST 29 ALT 19 Alkaline Phosphatase 64 Troponin I Total Protein 8.6 H Albumin 4.1 Globulin 4.4 H Albumin/Globulin Ratio 0.9 L Triglycerides 80 D Cholesterol 147 LDL Cholesterol Direct 69 HDL Cholesterol 48 Vitamin B12 458 Thyroxine (T4) 11.9 H TSH 3rd Generation 2.23 Assessment & Plan - Assessment and Plan (Free Text) Assessment: generalized anxiety disorder adjustment disorder with anxiety Plan: Will restart pt on xanax 0.5 mg bid standing for anxiety and if she remains anxious recommends increase neurontin to 100 mg tid pt when medically stable can be d/c and followed up in outpt
--- NOTE | 2017-07-21 10:40 | CP.PCM.CON ---
History of Present Illness - History of Present Illness History of Present Illness: on wishes mom to have surgery zan. Case discussed with DR Rojas Past Patient History - Infectious Disease Hx of Infectious Diseases: None - Past Medical History & Family History Past Medical History?: Yes - Past Social History Smoking Status: Never Smoked - CARDIAC Hx Cardiac Disorders: Yes - PULMONARY Hx Respiratory Disorders: No - NEUROLOGICAL Hx Neurological Disorder: No - HEENT Hx HEENT Problems: Yes Hx Epistaxis: Yes - RENAL Hx Chronic Kidney Disease: No - ENDOCRINE/METABOLIC Hx Endocrine Disorders: Yes - HEMATOLOGICAL/ONCOLOGICAL Hx Human Immunodeficiency Virus (HIV): No - INTEGUMENTARY Hx Dermatological Problems: No - MUSCULOSKELETAL/RHEUMATOLOGICAL Hx Degenerative Joint Disease: Yes Hx Falls: Yes Hx Osteoarthritis: Yes - GASTROINTESTINAL Hx Gastroesophageal Reflux: Yes Other/Comment: Hepatitis C - GENITOURINARY/GYNECOLOGICAL Hx Genitourinary Disorders: No - PSYCHIATRIC Hx Anxiety: Yes Hx Substance Use: No - SURGICAL HISTORY Hx Appendectomy: Yes Hx Tonsillectomy: Yes - ANESTHESIA Hx Anesthesia: Yes Hx Anesthesia Reactions: No Hx Malignant Hyperthermia: No Meds Allergies/Adverse Reactions: Allergies Allergy/AdvReac Type Severity Reaction Status Date / Time aspirin AdvReac VOMITING Verified 07/20/17 12:02 - Medications Medications: Current Medications Alprazolam (Xanax) 0.25 mg PO Q12 PRN PRN Reason: Anxiety Stop: 07/27/17 22:21 Gabapentin (Neurontin) 100 mg PO Q12 [facility] Last Admin: 07/21/17 09:32 Dose: 100 mg Home Med (Ropinirole Hcl [Requip]) 0.5 mg PO HS [facility] Last Admin: 07/20/17 23:45 Dose: 0.5 mg Lisinopril (Zestril) 10 mg PO DAILY [facility] Last Admin: 07/21/17 09:34 Dose: 10 mg Meclizine HCl (Antivert) 25 mg PO Q8 PRN PRN Reason: Dizziness Methimazole (Tapazole) 10 mg PO Q8 [facility] Last Admin: 07/21/17 09:32 Dose: 10 mg Montelukast Sodium (Singulair) 10 mg PO HS [facility] Last Admin: 07/20/17 23:32 Dose: 10 mg Multivitamins/Minerals (Therapeutic-M Tab) 1 tab PO DAILY [facility] Last Admin: 07/21/17 09:31 Dose: 1 tab Oxycodone/Acetaminophen (Percocet 5/325 Mg Tab) 1 tab PO Q4 PRN PRN Reason: Pain, severe (8-10) Stop: 07/23/17 22:21 Pantoprazole Sodium (Protonix Ec Tab) 20 mg PO DAILY [facility] Last Admin: 07/21/17 09:45 Dose: 20 mg Verapamil HCl (Calan Sr Capsule) 120 mg PO HS [facility] Last Admin: 07/20/17 23:33 Dose: 120 mg Physical Exam - Additional Findings Additional findings: Musculoskekeltal stance- erect pelvis- level gait- bilaterally antalgic gait- decreased stride length, stance time ROM both knees restricted positive effusion no gross deficits Results - Vital Signs Recent Vital Signs: Last Vital Signs Temp 98 F 07/21/17 08:16 Pulse 84 07/21/17 09:34 Resp 20 07/21/17 08:16 BP 122/70 07/21/17 09:34 Pulse Ox 95 07/21/17 08:16 - Labs Result Diagrams: 07/21/17 06:00 07/21/17 06:00 Labs: Laboratory Results - last 24 hr 07/20/17 07/20/17 07/20/17 12:30 12:30 13:02 WBC 4.3 L RBC 4.00 Hgb 12.2 Hct 36.9 MCV 92.4 MCH 30.6 MCHC 33.1 RDW 14.9 H Plt Count 135 MPV 9.5 Neut % (Auto) 31.3 L Lymph % (Auto) 45.7 H [place] % (Auto) 18.0 H Eos % (Auto) 3.8 Baso % (Auto) 1.2 Neut # (Auto) 1.3 L Lymph # (Auto) 2.0 [place] # (Auto) 0.8 Eos # (Auto) 0.2 Baso # (Auto) 0.1 Sodium 143 Potassium 3.9 Chloride 104 Carbon Dioxide 30 Anion Gap 13 BUN 20 H Creatinine 0.9 Est GFR ( Amer) > 60 Est GFR (Non-Af Amer) > 60 POC Glucose (mg/dL) 97 Random Glucose 100 Calcium 9.3 Total Bilirubin 0.9 AST 32 ALT 27 Alkaline Phosphatase 69 Troponin I 0.0190 Total Protein 8.5 H Albumin 4.1 Globulin 4.4 H Albumin/Globulin Ratio 0.9 L Triglycerides Cholesterol LDL Cholesterol Direct HDL Cholesterol Vitamin B12 Thyroxine (T4) TSH 3rd Generation 1.48 07/21/17 07/21/17 06:00 06:00 WBC 4.9 RBC 4.02 Hgb 12.3 Hct 37.2 MCV 92.6 MCH 30.6 MCHC 33.0 RDW 15.3 H Plt Count 140 MPV Neut % (Auto) Lymph % (Auto) [place] % (Auto) Eos % (Auto) Baso % (Auto) Neut # (Auto) Lymph # (Auto) [place] # (Auto) Eos # (Auto) Baso # (Auto) Sodium 141 Potassium 3.7 Chloride 102 Carbon Dioxide 24 Anion Gap 19 BUN 19 H Creatinine 0.8 Est GFR ( Amer) > 60 Est GFR (Non-Af Amer) > 60 POC Glucose (mg/dL) Random Glucose 139 H Calcium 9.0 Total Bilirubin 0.9 AST 29 ALT 19 Alkaline Phosphatase 64 Troponin I Total Protein 8.6 H Albumin 4.1 Globulin 4.4 H Albumin/Globulin Ratio 0.9 L Triglycerides 80 D Cholesterol 147 LDL Cholesterol Direct 69 HDL Cholesterol 48 Vitamin B12 458 Thyroxine (T4) 11.9 H TSH 3rd Generation 2.23 - Impressions Impression: Imaging MRI Right knee- severe destructive tricompartmental O/A Right knee MRI Left Knee- severe destructive tricompartmental O/A L knee with meniscal tears and ligment rupture Assessment & Plan - Assessment and Plan (Free Text) Assessment: A=- severe bilateral O/A both knees R>L P- for sequential TKR first Right then 6wks to therwee months later L knee situation discussed with pt (thru culturally competent retail personal banker)- and with son CAITLIN- possibility of mechanical failure, infection, thromboemebolic disease discussed. Possibility of nerve injury, stiffness, later secondary or even tertiary surgery / manipulatuion discussed NO PROMISES/GUARANTEES
--- NOTE | 2017-07-21 10:54 | CP.PCM.CON ---
History of Present Illness - History of Present Illness History of Present Illness: 82 yr old woman who was admitted for knee pain and dizziness, and neurology is consulted for dizziness. Miss Burt fell couple weeks earlier, presumptively due to feeling dizzy, and injured her knee, and unclear if there is arthritis or other chronic pathology. Today, she is able to walk well, with some knee pain , but otherwise good strength, rhomberg negative, and able to walk a good distance. There is no ataxia or dysmetria. She does have dizziness when she gets up suddenly that resolves. MRI Right knee- severe destructive tricompartmental O/A Right knee MRI Left Knee- severe destructive tricompartmental O/A L knee with meniscal tears and ligment rupture ROS: no nausea, no vomiting, no weakness, no aphasia, no dysarthria. PMH: Dickson's Disease, Anxiety, Cardia Arrhythmia, HTN, Hyperthyroidism Denies: HIV, Chronic Kidney Disease - Surgical History Surgical History: Appendectomy, Tonsillectomy - Family History Family History: States: Unknown Family Hx - Living Arrangements Living Arrangements: With Family FH/SH: All: on exam: Normal neurological exam except for decreased strength in quads bilaterally. Past Patient History - Infectious Disease Hx of Infectious Diseases: None - Past Medical History & Family History Past Medical History?: Yes - Past Social History Smoking Status: Never Smoked - CARDIAC Hx Cardiac Disorders: Yes - PULMONARY Hx Respiratory Disorders: No - NEUROLOGICAL Hx Neurological Disorder: No - HEENT Hx HEENT Problems: Yes Hx Epistaxis: Yes - RENAL Hx Chronic Kidney Disease: No - ENDOCRINE/METABOLIC Hx Endocrine Disorders: Yes - HEMATOLOGICAL/ONCOLOGICAL Hx Human Immunodeficiency Virus (HIV): No - INTEGUMENTARY Hx Dermatological Problems: No - MUSCULOSKELETAL/RHEUMATOLOGICAL Hx Degenerative Joint Disease: Yes Hx Falls: Yes Hx Osteoarthritis: Yes - GASTROINTESTINAL Hx Gastroesophageal Reflux: Yes Other/Comment: Hepatitis C - GENITOURINARY/GYNECOLOGICAL Hx Genitourinary Disorders: No - PSYCHIATRIC Hx Anxiety: Yes Hx Substance Use: No - SURGICAL HISTORY Hx Appendectomy: Yes Hx Tonsillectomy: Yes - ANESTHESIA Hx Anesthesia: Yes Hx Anesthesia Reactions: No Hx Malignant Hyperthermia: No Meds Allergies/Adverse Reactions: Allergies Allergy/AdvReac Type Severity Reaction Status Date / Time aspirin AdvReac VOMITING Verified 07/20/17 12:02 - Medications Medications: Current Medications Alprazolam (Xanax) 0.25 mg PO Q12 PRN PRN Reason: Anxiety Stop: 07/27/17 22:21 Gabapentin (Neurontin) 100 mg PO Q12 [facility] Last Admin: 07/21/17 09:32 Dose: 100 mg Home Med (Ropinirole Hcl [Requip]) 0.5 mg PO HS [facility] Last Admin: 07/20/17 23:45 Dose: 0.5 mg Lisinopril (Zestril) 10 mg PO DAILY [facility] Last Admin: 07/21/17 09:34 Dose: 10 mg Meclizine HCl (Antivert) 25 mg PO Q8 PRN PRN Reason: Dizziness Methimazole (Tapazole) 10 mg PO Q8 [facility] Last Admin: 07/21/17 09:32 Dose: 10 mg Montelukast Sodium (Singulair) 10 mg PO HS [facility] Last Admin: 07/20/17 23:32 Dose: 10 mg Multivitamins/Minerals (Therapeutic-M Tab) 1 tab PO DAILY [facility] Last Admin: 07/21/17 09:31 Dose: 1 tab Oxycodone/Acetaminophen (Percocet 5/325 Mg Tab) 1 tab PO Q4 PRN PRN Reason: Pain, severe (8-10) Stop: 07/23/17 22:21 Pantoprazole Sodium (Protonix Ec Tab) 20 mg PO DAILY [facility] Last Admin: 07/21/17 09:45 Dose: 20 mg Verapamil HCl (Calan Sr Capsule) 120 mg PO HS [facility] Last Admin: 07/20/17 23:33 Dose: 120 mg Results - Vital Signs Recent Vital Signs: Last Vital Signs Temp 98 F 07/21/17 08:16 Pulse 84 07/21/17 09:34 Resp 20 07/21/17 08:16 BP 122/70 07/21/17 09:34 Pulse Ox 95 07/21/17 08:16 - Labs Result Diagrams: 07/21/17 06:00 07/21/17 06:00 Labs: Laboratory Results - last 24 hr 07/20/17 07/20/17 07/20/17 12:30 12:30 13:02 WBC 4.3 L RBC 4.00 Hgb 12.2 Hct 36.9 MCV 92.4 MCH 30.6 MCHC 33.1 RDW 14.9 H Plt Count 135 MPV 9.5 Neut % (Auto) 31.3 L Lymph % (Auto) 45.7 H [place] % (Auto) 18.0 H Eos % (Auto) 3.8 Baso % (Auto) 1.2 Neut # (Auto) 1.3 L Lymph # (Auto) 2.0 [place] # (Auto) 0.8 Eos # (Auto) 0.2 Baso # (Auto) 0.1 ESR Sodium 143 Potassium 3.9 Chloride 104 Carbon Dioxide 30 Anion Gap 13 BUN 20 H Creatinine 0.9 Est GFR ( Amer) > 60 Est GFR (Non-Af Amer) > 60 POC Glucose (mg/dL) 97 Random Glucose 100 Calcium 9.3 Total Bilirubin 0.9 AST 32 ALT 27 Alkaline Phosphatase 69 Troponin I 0.0190 Total Protein 8.5 H Albumin 4.1 Globulin 4.4 H Albumin/Globulin Ratio 0.9 L Triglycerides Cholesterol LDL Cholesterol Direct HDL Cholesterol Vitamin B12 Thyroxine (T4) TSH 3rd Generation 1.48 07/21/17 07/21/17 06:00 06:00 WBC 4.9 RBC 4.02 Hgb 12.3 Hct 37.2 MCV 92.6 MCH 30.6 MCHC 33.0 RDW 15.3 H Plt Count 140 MPV Neut % (Auto) Lymph % (Auto) [place] % (Auto) Eos % (Auto) Baso % (Auto) Neut # (Auto) Lymph # (Auto) [place] # (Auto) Eos # (Auto) Baso # (Auto) ESR 41 H Sodium 141 Potassium 3.7 Chloride 102 Carbon Dioxide 24 Anion Gap 19 BUN 19 H Creatinine 0.8 Est GFR ( Amer) > 60 Est GFR (Non-Af Amer) > 60 POC Glucose (mg/dL) Random Glucose 139 H Calcium 9.0 Total Bilirubin 0.9 AST 29 ALT 19 Alkaline Phosphatase 64 Troponin I Total Protein 8.6 H Albumin 4.1 Globulin 4.4 H Albumin/Globulin Ratio 0.9 L Triglycerides 80 D Cholesterol 147 LDL Cholesterol Direct 69 HDL Cholesterol 48 Vitamin B12 458 Thyroxine (T4) 11.9 H TSH 3rd Generation 2.23 Assessment & Plan - Assessment and Plan (Free Text) Assessment: 82 yr old woman with most likely dizziness secondary to cardiac issues/ hypertension with chronic knee pain. She has a normal neurological examination. Plan: 1. gait training with physical therapy 2. Reevaluate cardiac meds: ?orthostatic hypotension 3. Neuroimaging not recommended at this time. 4. Orthopedics consult for knee pain. Thank you Dr. pruitt
--- NOTE | 2017-07-21 12:19 | CARD ---
APPROVED REPORT EXAM: Two-dimensional and M-mode echocardiogram with Doppler and color Doppler. Other Information Quality : GoodRhythm : NSR INDICATION Pre-Op 2D DIMENSIONS IVSd1.01 (0.7-1.1cm)LVDd4.99 (3.9-5.9cm) LVOT Diameter2.37 (1.8-2.4cm)PWd1.06 (0.7-1.1cm) IVSs2.08 (0.8-1.2cm)LVDs2.79 (2.5-4.0cm) FS (%) 44.1 %PWs1.37 (0.8-1.2cm) M-Mode DIMENSIONS Left Atrium (MM)3.47 (2.5-4.0cm)IVSd0.76 (0.7-1.1cm) Aortic Root3.70 (2.2-3.7cm)LVDd6.38 (4.0-5.6cm) Aortic Cusp Exc.2.26 (1.5-2.0cm)PWd1.09 (0.7-1.1cm) IVSs1.74 cmFS (%) 43 % LVDs3.65 (2.0-3.8cm)PWs1.56 cm Aortic Valve AI P 1/2 [id number] Mitral Valve MV E Uhupiwdf27.6cm/sMV DECEL [id number] A Yurobajl765.6cm/s MV TQB15ygO/A ratio0.6MVA (PHT)2.49cm2 TDI Lateral E' Peak V5.05cm/sMedial E' Peak V6.19cm/sE/Lateral E'12.6 E/Medial E'10.3 Pulmonary Valve PV Peak Nywmzlna39.8cm/s Tricuspid Valve TR Peak Gwxpdryi055jk/sRAP BUZBOTRK84qwHmFK Peak Gr.23mmHg [id number] LEFT VENTRICLE The left ventricle is normal size. There is moderate concentric left ventricular hypertrophy. The left ventricular function is normal. The left ventricular ejection fraction is - 75%. There is normal LV segmental wall motion. Transmitral Doppler flow pattern is Grade I-abnormal relaxation pattern. No left ventricle thrombus noted on this study. There is no ventricular septal defect visualized. There is no left ventricular aneurysm. There is no mass noted in the left ventricle. RIGHT VENTRICLE The right ventricle is normal size. There is normal right ventricular wall thickness. The right ventricular systolic function is normal. ATRIA The left atrium is mildly dilated on the 2D study. There is no thrombus suspected in the left atrium. The right atrium size is normal. The interatrial septum is intact with no evidence for an atrial septal defect. AORTIC VALVE The aortic valve is mildly calcified. There is moderate aortic regurgitation. There is no aortic valvular stenosis. MITRAL VALVE The mitral valve leaflets are mildly thickened. There is systolic anterior motion of the anterior mitral leaflet. There is no evidence of mitral valve prolapse. There is no mitral valve stenosis. Mitral regurgitation is mild to moderate. TRICUSPID VALVE The tricuspid valve is normal in structure. There is mild tricuspid regurgitation. Right ventricular systolic pressure is estimated at 33 mmHg. There is no tricuspid valve prolapse or vegetation. There is no tricuspid valve stenosis. PULMONIC VALVE The pulmonary valve is normal in structure. There is no pulmonic valvular regurgitation. GREAT VESSELS The aortic root is normal in size. The IVC is normal in size and collapses >50% with inspiration. PERICARDIAL EFFUSION The pericardium appears normal. There is no pleural effusion. <Conclusion> The left ventricle is normal size. There is moderate concentric left ventricular hypertrophy. The left ventricular function is normal. The left ventricular ejection fraction is - 75%. The left atrium is mildly dilated on the 2D study. The aortic valve is mildly calcified but not stenotic. The mitral valve is mildly thickened but not stenotic. There is systolic anterior motion of the anterior mitral leaflet. The tricuspid valve is normal. There is moderate aortic regurgitation, mild to moderate mitral regurgitation and mild tricuspid regurgitation.
[2017-07-21 13:13] LABS: INR 1.1 (0.9-1.2); PROTHROMBIN TIME 12.5 Seconds (9.8-13.1)
--- NOTE | 2017-07-21 13:18 | RAD ---
PROCEDURE: Left Knee Radiographs. HISTORY: Pain. COMPARISON: Comparison is made with 08/29/2013 FINDINGS: BONES: No evidence of acute fracture or dislocation. JOINTS: Severe osteoarthritic changes are noted at the left knee with interval worsening compared to the previous exam. Severe narrowing of the medial of the joint space noted. JOINT EFFUSION: Small joint effusion OTHER FINDINGS: None. IMPRESSION: Severe osteoarthritis.
[2017-07-21 13:46] LABS: T4 10.4 ug/dl (5.5-11.0)
--- NOTE | 2017-07-21 13:53 | RAD ---
PROCEDURE: Right Knee Radiographs. HISTORY: knee pain COMPARISON: Comparison is made with prior study dated 09/09/2009 FINDINGS: BONES: No evidence of acute fracture or dislocation JOINTS: Severe osteoarthritic changes are noted associated with severe narrowing of the medial component of the right knee joint and marginal osteophyte formation. JOINT EFFUSION: Small joint effusion. OTHER FINDINGS: Mild soft tissue swelling. IMPRESSION: Severe osteoarthritis
[2017-07-21 14:00] LABS: T3 1.04 nmol/L (1.49-2.60)
--- NOTE | 2017-07-21 15:00 | CP.PCM.HP ---
History of Present Illness - History of Present Illness History of Present Illness: CC: Intractable knees pain. 82 y/o F, came to [facility] to be evaluated for chronic knee pain b/L for several years, worsening for 1-1/2 week, pain is described as aching, constant, moderate to severe intensity 8:10 with no relief. Also c/o of Dizziness for years, on and off and severe anxiety. Worsening symptoms: Difficulty walking, decreased ROM lower extremities. Pt states she had a fall 2 weeks ago hitting her knees 2nd to suddenly episode of dizziness that resolved by it self. Aggravated factor: Movements, walking. PMHx: Knees O/A, HTN, vertigo, O/A, Dickson's Disease,Hyperthyroidism, Anxiety , Hx Falls, Hepatitis C. Head CT: No intracranial hemorrhage, MRI R Knee showed: Severe destructive tricompartmental O/A R Knee MRI L knee: Severe destructive tricomparmental O/A L knee with meniscal tear and ligament rupture. Echo: LVEF 75%, moderate AR, mild to moderate MR, mild TR. EKG: NSR, RBBB. Present on Admission - Present on Admission Any Indicators Present on Admission: No Review of Systems - Constitutional Constitutional: Frequent Falls - EENT Eyes: Other (negative) Ears: Other (negative) Nose/Mouth/Throat: Other (negative) - Cardiovascular Cardiovascular: Other (negative) - Respiratory Respiratory: Other (negative) - Gastrointestinal Gastrointestinal: Other (negative) - Genitourinary Genitourinary: Other (negative) - Musculoskeletal Musculoskeletal: Arthralgias, Limited Range of Motion (lower extremities), Other (knees pain,) - Integumentary Integumentary: Other (negative) - Neurological Neurological: Dizziness - Psychiatric Psychiatric: Anxiety - Endocrine Endocrine: Other (negative) - Hematologic/Lymphatic Hematologic: Other (negative) Past Patient History - Infectious Disease Hx of Infectious Diseases: None - Past Medical History & Family History Past Medical History?: Yes Pertinent Family History: Unknown - Past Social History Smoking Status: Never Smoked Alcohol: None Drugs: Denies Home Situation {Lives}: Alone - CARDIAC Hx Cardiac Disorders: Yes - PULMONARY Hx Respiratory Disorders: No - NEUROLOGICAL Hx Neurological Disorder: No - HEENT Hx HEENT Problems: Yes Hx Epistaxis: Yes - RENAL Hx Chronic Kidney Disease: No - ENDOCRINE/METABOLIC Hx Endocrine Disorders: Yes - HEMATOLOGICAL/ONCOLOGICAL Hx Human Immunodeficiency Virus (HIV): No - INTEGUMENTARY Hx Dermatological Problems: No - MUSCULOSKELETAL/RHEUMATOLOGICAL Hx Degenerative Joint Disease: Yes Hx Falls: Yes Hx Osteoarthritis: Yes - GASTROINTESTINAL Hx Gastroesophageal Reflux: Yes Other/Comment: Hepatitis C - GENITOURINARY/GYNECOLOGICAL Hx Genitourinary Disorders: No - PSYCHIATRIC Hx Anxiety: Yes Hx Substance Use: No - SURGICAL HISTORY Hx Appendectomy: Yes Hx Tonsillectomy: Yes - ANESTHESIA Hx Anesthesia: Yes Hx Anesthesia Reactions: No Hx Malignant Hyperthermia: No Meds Allergies/Adverse Reactions: Allergies Allergy/AdvReac Type Severity Reaction Status Date / Time aspirin AdvReac VOMITING Verified 07/20/17 12:02 Physical Exam - Constitutional Appears: Other (mild distress.) - Head Exam Head Exam: NORMAL INSPECTION - Eye Exam Eye Exam: PERRL - ENT Exam ENT Exam: Normal Exam - Neck Exam Neck exam: Positive for: Normal Inspection - Respiratory Exam Respiratory Exam: Clear to Auscultation Bilateral - Cardiovascular Exam Cardiovascular Exam: REGULAR RHYTHM, Systolic Murmur (2-3/6 LSB Ao) - GI/Abdominal Exam GI & Abdominal Exam: Normal Bowel Sounds, Soft - Extremities Exam Extremities exam: Positive for: tenderness (R-L knee) - Back Exam Back exam: NORMAL INSPECTION - Neurological Exam Neurological exam: Alert, Oriented x3 - Psychiatric Exam Psychiatric exam: Anxious - Skin Skin Exam: Warm Results - Vital Signs Recent Vital Signs: Last Vital Signs Temp 98 F 07/21/17 08:16 Pulse 84 07/21/17 09:34 Resp 20 07/21/17 08:16 BP 122/70 07/21/17 09:34 Pulse Ox 95 07/21/17 08:16 reviewed [place] - Labs Result Diagrams: 07/21/17 06:00 07/21/17 06:00 Labs: Laboratory Results - last 24 hr 07/21/17 07/21/17 07/21/17 06:00 06:00 12:19 WBC 4.9 RBC 4.02 Hgb 12.3 Hct 37.2 MCV 92.6 MCH 30.6 MCHC 33.0 RDW 15.3 H Plt Count 140 ESR 41 H PT 12.5 INR 1.1 Sodium 141 Potassium 3.7 Chloride 102 Carbon Dioxide 24 Anion Gap 19 BUN 19 H Creatinine 0.8 Est GFR ( Amer) > 60 Est GFR (Non-Af Amer) > 60 Random Glucose 139 H Calcium 9.0 Total Bilirubin 0.9 AST 29 ALT 19 Alkaline Phosphatase 64 Total Protein 8.6 H Albumin 4.1 Globulin 4.4 H Albumin/Globulin Ratio 0.9 L Triglycerides 80 D Cholesterol 147 LDL Cholesterol Direct 69 HDL Cholesterol 48 Vitamin B12 458 Thyroxine (T4) 11.9 H Total T3 TSH 3rd Generation 2.23 07/21/17 12:19 WBC RBC Hgb Hct MCV MCH MCHC RDW Plt Count ESR PT INR Sodium Potassium Chloride Carbon Dioxide Anion Gap BUN Creatinine Est GFR ( Amer) Est GFR (Non-Af Amer) Random Glucose Calcium Total Bilirubin AST ALT Alkaline Phosphatase Total Protein Albumin Globulin Albumin/Globulin Ratio Triglycerides 76 Cholesterol 131 LDL Cholesterol Direct 64 HDL Cholesterol 44 Vitamin B12 Thyroxine (T4) 10.4 Total T3 1.04 L TSH 3rd Generation 1.86 J.P. - EKG Data EKG comments: JYoselinPYoselin - Impressions Impression: MRI R-L Knee: Reviewed J.P. Echo: Reviewed J.P. - Imaging and Cardiology CT scan - head Status: Report reviewed by me (Aissatou) Assessment & Plan (1) Acute pain of both knees Status: Acute Priority: High (2) Knee instability Status: Acute Priority: High (3) Dizziness Status: Chronic Priority: High (4) Anxiety Status: Chronic Priority: Medium (5) HTN (hypertension) Status: Chronic Priority: Medium (6) History of asthma Status: Chronic Priority: Medium - Assessment and Plan (Free Text) Plan: Pt was seen by Orthopedic managing consultant recommending R TKR and after 6 weeks later to have L TKR, Pt was cleared by Cardiology for surgery. Initially, Pt's son agreed with surgery but there after, he decided to have a 2nd opinion and Pt was discharged as request by her son. Cardiology, Neuro and Orthopedic consults appreciated. - Date & Time Date: 07/21/17 Time: 13:30
--- NOTE | 2017-07-21 15:03 | CP.PCM.DIS ---
Provider - Provider Date of Admission: 07/20/17 16:58 Attending physician: Peter Rojas MD Hospital Course - Lab Results Lab Results: Most Recent Lab Values WBC 4.9 K/uL (4.8-10.8) 07/21/17 06:00 RBC 4.02 Mil/uL (3.80-5.20) 07/21/17 06:00 Hgb 12.3 g/dL (12.0-16.0) 07/21/17 06:00 Hct 37.2 % (34.0-47.0) 07/21/17 06:00 MCV 92.6 fl (81.0-99.0) 07/21/17 06:00 MCH 30.6 pg (27.0-31.0) 07/21/17 06:00 MCHC 33.0 g/dL (33.0-37.0) 07/21/17 06:00 RDW 15.3 % (11.5-14.5) H 07/21/17 06:00 Plt Count 140 K/uL (130-400) 07/21/17 06:00 MPV 9.5 fl (7.2-11.7) 07/20/17 12:30 Neut % (Auto) 31.3 % (50.0-75.0) L 07/20/17 12:30 Lymph % (Auto) 45.7 % (20.0-40.0) H 07/20/17 12:30 [place] % (Auto) 18.0 % (0.0-10.0) H 07/20/17 12:30 Eos % (Auto) 3.8 % (0.0-4.0) 07/20/17 12:30 Baso % (Auto) 1.2 % (0.0-2.0) 07/20/17 12:30 Neut # (Auto) 1.3 K/uL (1.8-7.0) L 07/20/17 12:30 Lymph # (Auto) 2.0 K/uL (1.0-4.3) 07/20/17 12:30 [place] # (Auto) 0.8 K/uL (0.0-0.8) 07/20/17 12:30 Eos # (Auto) 0.2 K/uL (0.0-0.7) 07/20/17 12:30 Baso # (Auto) 0.1 K/uL (0.0-0.2) 07/20/17 12:30 ESR 41 mm/hr (0-30) H 07/21/17 06:00 PT 12.5 Seconds (9.8-13.1) 07/21/17 12:19 INR 1.1 (0.9-1.2) 07/21/17 12:19 Sodium 141 mmol/l (132-148) 07/21/17 06:00 Potassium 3.7 MMOL/L (3.6-5.0) 07/21/17 06:00 Chloride 102 mmol/L (98-107) 07/21/17 06:00 Carbon Dioxide 24 mmol/L (22-30) 07/21/17 06:00 Anion Gap 19 (10-20) 07/21/17 06:00 BUN 19 mg/dl (7-17) H 07/21/17 06:00 Creatinine 0.8 mg/dl (0.7-1.2) 07/21/17 06:00 Est GFR ( Amer) > 60 07/21/17 06:00 Est GFR (Non-Af Amer) > 60 07/21/17 06:00 POC Glucose (mg/dL) 97 mg/dL (65-110) 07/20/17 13:02 Random Glucose 139 mg/dL (65-105) H 07/21/17 06:00 Calcium 9.0 mg/dL (8.4-10.2) 07/21/17 06:00 Total Bilirubin 0.9 mg/dl (0.2-1.3) 07/21/17 06:00 AST 29 U/L (14-36) 07/21/17 06:00 ALT 19 U/L (9-52) 07/21/17 06:00 Alkaline Phosphatase 64 U/L (38-126) 07/21/17 06:00 Troponin I 0.0190 ng/mL (0.00-0.120) 07/20/17 12:30 Total Protein 8.6 G/DL (6.3-8.2) H 07/21/17 06:00 Albumin 4.1 g/dL (3.5-5.0) 07/21/17 06:00 Globulin 4.4 gm/dL (2.2-3.9) H 07/21/17 06:00 Albumin/Globulin Ratio 0.9 (1.0-2.1) L 07/21/17 06:00 Triglycerides 76 mg/DL (0-149) 07/21/17 12:19 Cholesterol 131 mg/dL (0-199) 07/21/17 12:19 LDL Cholesterol Direct 64 mg/dL (0-129) 07/21/17 12:19 HDL Cholesterol 44 MG/DL (30-70) 07/21/17 12:19 Vitamin B12 458 pg/mL (239-931) 07/21/17 06:00 Thyroxine (T4) 10.4 ug/dl (5.5-11.0) 07/21/17 12:19 Total T3 1.04 nmol/L (1.49-2.60) L 07/21/17 12:19 TSH 3rd Generation 1.86 mIU/ML (0.46-4.68) 07/21/17 12:19 Discharge Plan - Follow Up Plan Condition: FAIR Disposition: HOME/ ROUTINE
--- NOTE | 2017-07-21 15:03 | CP.PCM.CON ---
History of Present Illness - History of Present Illness History of Present Illness: ASKED TO SEE PATIENT BY DR TATE FOR CLEARANCE FOR KNEE SURGERY SCHEDULED FOR SUNDAY. THE PATIENT IS AN 82 YEAR OLD FEMALE WHO HAS A HISTORY OF HYPERTENSION , BILATERAL KNEE ARTHRITIS, MENIERE'S DISEASE, ANXIETY, GERDS AND COPD. SHE WAS ADMITTED TO THE HOSPITAL FOR DIZZINESS AND WAS ALSO WORKED UP FOR HER KNEE ARTHRITIS AND DR TATE WAS CONSULTED AND PLANS ON DOING A RIGHT TKR ON SUNDAY. THE PATIENT SEES DR BROOKS FOR HYPERTENSION AND HE COULD NOT SEE HER TODAY AND ASKED ME TO SEE HER INSTEAD. Past Patient History - Infectious Disease Hx of Infectious Diseases: None - Past Medical History & Family History Past Medical History?: Yes - Past Social History Smoking Status: Never Smoked - CARDIAC Hx Cardiac Disorders: Yes - PULMONARY Hx Respiratory Disorders: No - NEUROLOGICAL Hx Neurological Disorder: No - HEENT Hx HEENT Problems: Yes Hx Epistaxis: Yes - RENAL Hx Chronic Kidney Disease: No - ENDOCRINE/METABOLIC Hx Endocrine Disorders: Yes - HEMATOLOGICAL/ONCOLOGICAL Hx Human Immunodeficiency Virus (HIV): No - INTEGUMENTARY Hx Dermatological Problems: No - MUSCULOSKELETAL/RHEUMATOLOGICAL Hx Degenerative Joint Disease: Yes Hx Falls: Yes Hx Osteoarthritis: Yes - GASTROINTESTINAL Hx Gastroesophageal Reflux: Yes Other/Comment: Hepatitis C - GENITOURINARY/GYNECOLOGICAL Hx Genitourinary Disorders: No - PSYCHIATRIC Hx Anxiety: Yes Hx Substance Use: No - SURGICAL HISTORY Hx Appendectomy: Yes Hx Tonsillectomy: Yes - ANESTHESIA Hx Anesthesia: Yes Hx Anesthesia Reactions: No Hx Malignant Hyperthermia: No Meds Allergies/Adverse Reactions: Allergies Allergy/AdvReac Type Severity Reaction Status Date / Time aspirin AdvReac VOMITING Verified 07/20/17 12:02 - Medications Medications: Current Medications Alprazolam (Xanax) 0.25 mg PO Q12 PRN PRN Reason: Anxiety Stop: 07/27/17 22:21 Gabapentin (Neurontin) 100 mg PO Q12 [facility] Last Admin: 07/21/17 09:32 Dose: 100 mg Home Med (Ropinirole Hcl [Requip]) 0.5 mg PO HS [facility] Last Admin: 07/20/17 23:45 Dose: 0.5 mg Lisinopril (Zestril) 10 mg PO DAILY [facility] Last Admin: 07/21/17 09:34 Dose: 10 mg Meclizine HCl (Antivert) 25 mg PO Q8 PRN PRN Reason: Dizziness Last Admin: 07/21/17 14:50 Dose: 25 mg Methimazole (Tapazole) 10 mg PO Q8 [facility] Last Admin: 07/21/17 09:32 Dose: 10 mg Montelukast Sodium (Singulair) 10 mg PO HS [facility] Last Admin: 07/20/17 23:32 Dose: 10 mg Multivitamins/Minerals (Therapeutic-M Tab) 1 tab PO DAILY [facility] Last Admin: 07/21/17 09:31 Dose: 1 tab Oxycodone/Acetaminophen (Percocet 5/325 Mg Tab) 1 tab PO Q4 PRN PRN Reason: Pain, severe (8-10) Stop: 07/23/17 22:21 Pantoprazole Sodium (Protonix Ec Tab) 20 mg PO DAILY [facility] Last Admin: 07/21/17 09:45 Dose: 20 mg Verapamil HCl (Calan Sr Capsule) 120 mg PO HS [facility] Last Admin: 07/20/17 23:33 Dose: 120 mg Physical Exam - Respiratory Exam Respiratory Exam: Clear to Auscultation Bilateral - Cardiovascular Exam Cardiovascular Exam: Diastolic murmur, REGULAR RHYTHM, +S1, +S2, Systolic Murmur - Extremities Exam Additional comments: BILAT KNEE ARTHRITIS NO LEG EDEMA - Additional Findings Additional findings: EKG NSR, RBBB ECHO CONCENTRIC LVH, MODERATE AR, MILD TO MODERATE MR, MILD TR, NIYAH Results - Vital Signs Recent Vital Signs: Last Vital Signs Temp 98 F 07/21/17 08:16 Pulse 84 07/21/17 09:34 Resp 20 07/21/17 08:16 BP 122/70 07/21/17 09:34 Pulse Ox 95 07/21/17 08:16 - Labs Result Diagrams: 07/21/17 06:00 07/21/17 06:00 Labs: Laboratory Results - last 24 hr 07/21/17 07/21/17 07/21/17 06:00 06:00 12:19 WBC 4.9 RBC 4.02 Hgb 12.3 Hct 37.2 MCV 92.6 MCH 30.6 MCHC 33.0 RDW 15.3 H Plt Count 140 ESR 41 H PT 12.5 INR 1.1 Sodium 141 Potassium 3.7 Chloride 102 Carbon Dioxide 24 Anion Gap 19 BUN 19 H Creatinine 0.8 Est GFR ( Amer) > 60 Est GFR (Non-Af Amer) > 60 Random Glucose 139 H Calcium 9.0 Total Bilirubin 0.9 AST 29 ALT 19 Alkaline Phosphatase 64 Total Protein 8.6 H Albumin 4.1 Globulin 4.4 H Albumin/Globulin Ratio 0.9 L Triglycerides 80 D Cholesterol 147 LDL Cholesterol Direct 69 HDL Cholesterol 48 Vitamin B12 458 Thyroxine (T4) 11.9 H Total T3 TSH 3rd Generation 2.23 07/21/17 12:19 WBC RBC Hgb Hct MCV MCH MCHC RDW Plt Count ESR PT INR Sodium Potassium Chloride Carbon Dioxide Anion Gap BUN Creatinine Est GFR ( Amer) Est GFR (Non-Af Amer) Random Glucose Calcium Total Bilirubin AST ALT Alkaline Phosphatase Total Protein Albumin Globulin Albumin/Globulin Ratio Triglycerides 76 Cholesterol 131 LDL Cholesterol Direct 64 HDL Cholesterol 44 Vitamin B12 Thyroxine (T4) 10.4 Total T3 1.04 L TSH 3rd Generation 1.86 Assessment & Plan - Assessment and Plan (Free Text) Assessment: BILATERAL KNEE ARTHRITIS HYPERTENSION MENIERE'S DISEASE ECHOCARDIOGRAM FINDINGS OF AR, MR, TR AND NIYAH Plan: CONTINUE VERAPAMIL, MECLIZINE, SINGULAIR, PROTONIX THE PATIENT AND HER SON WANT A SECOND ORTHOPEDIC OPINION PRIOR TO PROCEEDING WITH SURGERY AND WILL DISCUSS IT WITH DR AARON
--- NOTE | 2017-07-21 16:49 | CARD ---
APPROVED REPORT EKG Measurement Heart [id number] <Conclusion> Normal sinus rhythm Right bundle branch block Abnormal ECG
[2017-07-21 19:26] LABS: SQUAMOUS EPITHIAL 2 /hpf (0-5); URINE BACTERIA RARE (<OCC); URINE BILIRUBIN NEGATIVE (NEGATIVE); URINE BLOOD NEGATIVE (NEGATIVE); URINE CLARITY SLIGHTY-CLOUDY (Clear); URINE COLOR YELLOW (YELLOW); URINE GLUCOSE (UA) NEG (Normal); URINE HYALINE CAST 0-2 /hpf (0-2); URINE LEUKOCYTE ESTERASE SMALL Leu/uL (Negative); URINE PROTEIN NEGATIVE (NEGATIVE)
[2017-07-22 06:09] LABS: SQUAMOUS EPITHIAL < 1 /hpf (0-5); URINE BILIRUBIN NEGATIVE (NEGATIVE); URINE BLOOD NEGATIVE (NEGATIVE); URINE CLARITY CLEAR (Clear); URINE COLOR YELLOW (YELLOW); URINE GLUCOSE (UA) NEG (Normal); URINE LEUKOCYTE ESTERASE NEG Leu/uL (Negative); URINE PROTEIN NEGATIVE (NEGATIVE); URINE UROBILINOGEN 0.2-1.0 mg/dL (0.2-1.0)
--- NOTE | 2017-07-23 14:38 | CARD ---
APPROVED REPORT EKG Measurement Heart [id number] <Conclusion> Normal sinus rhythm Right bundle branch block Abnormal ECG
== END 2017-07-21 15:35 | disposition home or self-care (01) ==
LOC: H.ER 11:08 → H.ERHOLD 16:58 → H.MEDSURG1 21:17
PROVIDERS: ADMIT Internal Medicine Pulmonary Disease; ATTEND Internal Medicine Pulmonary Disease
DX: M17.0 Bilateral primary osteoarthritis of knee (principal); B19.20 Unspecified viral hepatitis C without hepatic coma; E27.1 Primary adrenocortical insufficiency; F41.1 Generalized anxiety disorder; F43.22 Adjustment disorder with anxiety; G89.29 Other chronic pain; H81.09 Meniere's disease, unspecified ear; I10 Essential (primary) hypertension; J44.9 Chronic obstructive pulmonary disease, unspecified; K21.9 Gastro-esophageal reflux disease without esophagitis; M25.369 Other instability, unspecified knee; Z90.49 Acquired absence of other specified parts of digestive tract; Z91.81 History of falling; E05.90 Thyrotoxicosis, unspecified without thyrotoxic crisis or storm; I45.10 Unspecified right bundle-branch block; Z79.899 Other long term (current) drug therapy
CPT/HCPCS: 36415; 70450; 73560; 73721; 80053; 80061; 81003; 82306; 82607; 82948; 83520; 84436; 84443; 84480; 84484; 85025; 85027; 85610; 85651; 86039; 93005; 93306; 99285; G0378

== ENCOUNTER 2018-04-14 21:04 | Emergency (ER) | payer MEDICARE, MEDICAID ==
[2018-04-14 21:04] VITALS: BMI 27.4
[2018-04-14 21:44] VITALS: RESP 18
[2018-04-14] MEDS ORDERED: Silver Nitrate Topical - Stick TOP ONE (22:09)
--- NOTE | 2018-04-14 22:09 | ED PDOC ---
HPI: Nose Bleed Time Seen by Provider: 04/14/18 21:53 Chief Complaint (Nursing): ENT Problem Chief Complaint (Provider): Nose Bleed History Per: Patient, Family (daughter) History/Exam Limitations: no limitations Onset/Duration Of Symptoms: Hrs (a couple) Current Symptoms Are (Timing): Still Present Location Of Bleeding: Left Nare Symptoms Have Been: Continuous Additional Complaint(s): 82 year old female presents to the ED for evaluation of a continuous left sided nose bleed for the past couple hours. As per old charts, patient has been seen multiple times for similar nose bleeds. Otherwise denies dizziness, light headedness, shortness of breath, and chest pain. PMD: Peter Rojas Past Medical History Reviewed: Historical Data, Nursing Documentation, Vital Signs Vital Signs: Last Vital Signs Temp 97.7 F 04/14/18 21:41 Pulse 99 H 04/14/18 21:41 Resp 18 04/14/18 21:41 BP 123/73 04/14/18 21:41 Pulse Ox 97 04/14/18 21:41 - Medical History PMH: Yell's Disease, Anxiety, Cardia Arrhythmia, Hepatitis (C), HTN, Hyperthyroidism Denies: HIV, Chronic Kidney Disease - Surgical History Surgical History: Appendectomy, Tonsillectomy - Family History Family History: States: Unknown Family Hx - Social History Current smoker - smoking cessation education provided: No Alcohol: None Drugs: Denies - Home Medications Home Medications: Ambulatory Orders Medication Instructions Recorded Gabapentin [Neurontin] 100 mg PO Q12 12/01/14 Verapamil HCl [Verelan] 120 mg PO HS 12/01/14 ALPRAZolam [Xanax] 0.25 mg PO Q12 PRN 07/20/17 Benazepril HCl [Lotensin] 10 mg PO DAILY 07/20/17 Meclizine [Meclizine*] 25 mg PO Q8 PRN 07/20/17 Montelukast [Singulair] 10 mg PO HS 07/20/17 Multivitamin/Iron/Folic Acid 1 tab PO DAILY 07/20/17 [Centrum Adults Tablet] Omeprazole 20 mg PO BID PRN 07/20/17 Ropinirole HCl [Requip] 0.5 mg PO HS 07/20/17 methIMAzole [Tapazole] 10 mg PO Q8 07/20/17 - Allergies Allergies/Adverse Reactions: Allergies Allergy/AdvReac Type Severity Reaction Status Date / Time aspirin AdvReac VOMITING Verified 04/14/18 21:41 Review of Systems Constitutional: Negative for: Weakness Eyes: Negative for: Vision Change ENT: Positive for: Other (nose bleed left nare, continuous) Cardiovascular: Negative for: Chest Pain, Light Headedness Respiratory: Negative for: Shortness of Breath Neurological: Negative for: Dizziness Physical Exam - Reviewed Nursing Documentation Reviewed: Yes Vital Signs Reviewed: Yes - Physical Exam Appears: Positive for: No Acute Distress Head Exam: Positive for: ATRAUMATIC, NORMOCEPHALIC Skin: Positive for: Normal Color, Warm Eye Exam: Positive for: Normal appearance ENT: Positive for: Other (mild oozing blood from left septum; right nare u nremarkable; throat unremarkable). Negative for: Nasal Congestion, Pharyngeal Erythema, Tonsillar Exudate Neck: Positive for: Normal, Painless ROM, Supple Cardiovascular/Chest: Positive for: Regular Rate, Rhythm Respiratory: Positive for: Normal Breath Sounds. Negative for: Respiratory Distress Neurologic/Psych: Positive for: Alert, Oriented (x3) - ECG O2 Sat by Pulse Oximetry: 97 (RA) Pulse Ox Interpretation: Normal - Progress ED Course And Treament: 2245: Pt. with no bleeding currently. AAOx3. Pain free. Tolerated PO. Silver nitrate used on septum for site of possible oozing. No active bleeding. Pt. to fu with Dr. Castellon who they saw prior. Medical Decision Making Medical Decision Making: Time: 2208 Initial Impression: nose bleed Initial Plan: --Silver nitrate stick 1 swa TOP Scribe Attestation: Documented by Thea Matthews, acting as a scribe for Zain Rios MD. Provider Scribe Attestation: All medical record entries made by the Scribe were at my direction and personally dictated by me. I have reviewed the chart and agree that the record accurately reflects my personal performance of the history, physical exam, medical decision making, and the department course for this patient. I have also personally directed, reviewed, and agree with the discharge instructions and disposition. Disposition - Clinical Impression Clinical Impression: Epistaxis - Patient ED Disposition Is Patient to be Admitted: No Counseled Patient/Family Regarding: Studies Performed, Diagnosis, Need For Followup - Disposition Referrals: [facility] [Outside] - 04/15/18 Jd Castellon MD [Staff Provider] - Disposition: Routine/Home Disposition Time: 22:38 Condition: STABLE Additional Instructions: Return if not better in 3 days. Instructions: Nosebleeds Forms: [facility] ([place])
[2018-04-14] MEDS ORDERED: Silver Nitrate Topical - Stick ONE (22:16)
[2018-04-14 23:26] VITALS: BP 114/67; PULSE 87; TEMP 98.5; O2SAT 99
== END 2018-04-14 23:26 | disposition home or self-care (01) ==
LOC: H.ER 21:04
DX: R04.0 Epistaxis (principal)